=== PATIENT | male | born 1940 | race Caucasian/White ===

== ENCOUNTER → 2024-02-29 | Outpatient (CLI) | payer MEDICARE, SELFPAY ==
[2024-02-29 12:37] LABS: Absolute Lymphocyte Count 1.74 X10^3/uL (0.83-4.51); Absolute Neutrophil Count 4.6 X10^3/uL (2.0-7.7); Basophil# 0.04 X10^3/uL; Basophil% 0.6 % (0-1); Eosinophil# 0.39 X10^3/uL; Eosinophils% 5.4 % (0-5); Hematocrit 45.6 % (40-54); Hemoglobin 14.5 g/dL (13.0-16.5); Lymphocyte # 1.74 X10^3/ul (0.83-4.51); Lymphocyte % 24.1 % (19-41); Mean Corp Hgb Conc 31.8 g/dL (32-36); Mean Corpuscular Hgb 30.5 pg (27.0-32.0); Mean Platelet Vol. 11.6 fl (6.2-12.0); Monocyte# 0.48 X10^3/uL; Monocyte% 6.6 % (0-10); NRBC Flagged by Analyzer 0 % (0-5); Neutrophil # 4.55 X10^3/uL (2.7-7.7); Platelet Count 208 K/mm3 (150-450); RBC Distribution Width CV 12.9 % (11.6-14.6); RBC Distribution Width SD 46.5 fl (35.1-43.9); Red Blood Count 4.75 M/mm3 (4.6-6.2); White Blood Count 7.2 K/mm3 (4.4-11.0)
[2024-02-29 12:53] LABS: AST(SGOT) 18 U/L (15-37); Alanine Aminotransfer ALT/SGPT 27 U/L (16-61); Albumin, Serum 3.6 g/dL (3.2-5.0); Alkaline Phosphatase 131 U/L (45-117); Anion Gap 6 (5-15); BUN 16 mg/dL (7-18); BUN/Creat Ratio 16.2 RATIO (10-20); Calcium,Total 9.1 mg/dL (8.5-10.1); Chloride 106 mmol/L (98-107); Cholesterol 141 mg/dL (200); Creatinine, Serum 0.99 mg/dL (0.70-1.30); EST Glomerular Filtration Rate 77 mL/min (>60); Est Glom Filt Rate - Afr Amer 93 mL/min (>60); Globulin 3.6 g/dL (2.2-4.2); Glucose 91 mg/dL (74-106); High Density Lipoprotein 49 mg/dL; Potassium 4.3 mmol/L (3.5-5.1); Protein, Total 7.2 g/dL (6.4-8.2); Sodium Level 140 mmol/L (136-145); Triglycerides 87 mg/dL; Very Low Density Lipoprotein 17 mg/dL (5-40)
== END | disposition home or self-care (01) ==
LOC: BFHLAB 10:10
PROVIDERS: PCP Family Medicine; Referring Provider Family Medicine; Visit Provider Family Medicine
DX: I10 Essential (primary) hypertension (principal); E03.9 Hypothyroidism, unspecified; E78.5 Hyperlipidemia, unspecified
CPT/HCPCS: 36415; 80053; 80061; 84443; 85025

== ENCOUNTER 2024-06-21 09:47 | Emergency (ER) | payer MEDICARE, SELFPAY ==
[2024-06-21 09:48] VITALS: BP 165/94; PULSE 75; RESP 18; TEMP 36.7; O2SAT 95; BMI 29.3
--- NOTE | 2024-06-21 10:17 | RAD_ITS ---
PROCEDURE: CHEST 1 VIEW (PORTABLE) REASON FOR EXAM: Dizziness TECHNIQUE: Frontal and lateral views of the chest. COMPARISON: None. FINDINGS: The heart size is normal. There are atherosclerotic calcifications of the thoracic aorta. The lungs are clear. The bones are unremarkable. RAD/Chest 1 View (Portable) IMPRESSION: No radiographic evidence of acute cardiopulmonary disease Reading Location: [facility]
--- NOTE | 2024-06-21 10:17 | EKG12_ITS ---
Test Reason : WEAKNESS Blood Pressure : */* mmHG Vent. Rate : 70 BPM Atrial Rate : 70 BPM P-R Int : 192 ms QRS Dur : 96 ms QT Int : 406 ms P-R-T Axes : 37 -35 27 degrees QTcB Int : 438 ms Sinus rhythm with Premature atrial complexes Left axis deviation Minimal voltage criteria for LVH, may be normal variant ( R in aVL ) Abnormal ECG Confirmed by Brandon Hernandez ([id number]), staff editor JULIAN KAUFFMAN ([id number]) on 06/23/2024 7:02:02 AM Referred By: Confirmed By: Brandon Hernandez
--- NOTE | 2024-06-21 10:21 | EDS_ITS ---
HPI History of Present Illness Chief Complaint: Weakness Informant: patient and family Narrative Narrative: Patient is an 84-year-old male presenting from home for dizziness, nausea and vomiting. He states he woke up around 7 AM and noticed he was little dizzy. He got himself dressed and shaved and his dizziness worsens. He describes as a room spinning sensation. The dizziness got so bad that he started throwing up it was not able to get to the bathroom or walk. EMS was called he was brought to the ER for further evaluation. He states he felt well when he went to bed last night. His daughters at the bedside. Patient was able to call for help/assistance on his phone. He states that he did get up to use the restroom a couple times throughout the night which is typical for him with no symptoms. Denies any acute hearing changes. Denies any headache. I denies any acute vision changes but notes he has diminished vision at baseline because of his history of macular degeneration. Denies any hearing changes. Denies any ringing in his ears. Denies any recent URI symptoms states he has some chronic sinus congestion which is unchanged. No numbness or tingling reported. No other complaints or concerns at this time. Not on any blood thinners. [facility] Medical History Hypothyroidism GERD (gastroesophageal reflux disease) Coronary artery disease Hypertension Home Medications ?Medication ?Instructions ?Recorded ?Last Taken ?Type cetirizine 10 mg capsule (Zyrtec) 10 mg PO DAILY #14 C APSULES 06/21/24 Unknown Rx fluticasone propionate 50 1 spray intranasal Q12H #16 grams 06/21/24 Unknown Rx mcg/actuation nasal spray,suspension (Flonase Allergy Relief) meclizine 25 mg tablet 25 mg PO 4X/DAY PRN PRN Dizz iness 06/21/24 Unknown Rx #20 tabs Allergy/AdvReac Type Severity Reaction Status Date / Time No Known Allergies Allergy Verified 06/21/24 09:52 Social History Smoking Status: Never smoker ROS ROS ED Constitutional Constitutional ED: Denies chills or fever(s) Eyes Eyes: Reports other Details: Poor vision at baseline secondary to macular degeneration ; Denies blurry vision or change in vision ENT ENT ED: Denies ear pain, rhinorrhea or sore throat Cardiovascular Cardiovascular: Denies chest pain Respiratory/Chest Respiratory/Chest: Denies cough or dyspnea Gastrointestinal Gastrointestinal: Reports nausea and vomiting; Denies abdominal pain, constipation or diarrhea Genitourinary Genitourinary ED: Denies dysuria or hematuria Musculoskeletal Musculoskeletal: Denies myalgias Integumentary Denies rash Neurologic Neurologic: Reports other Details: Vertigo reported ; Denies headache(s), paresthesias or weakness Hematologic/Lymphatic Hematologic/Lymphatic: Denies easy bleeding or easy bruising EXAM Physical Exam Const Vital Signs: 06/21/24 09:48 06/21/24 09:54 06/21/24 11:56 Temperature 98.1 F Temperature Source Oral Pulse Rate 75 70 Respiratory Rate 18 18 Respiratory Pattern Normal Blood Pressure 165/94 H 150/84 H Blood Pressure Mean 117 106 Pulse Ox 95 95 Oxygen Delivery Method Room Air Room Air 06/21/24 13:08 06/21/24 14:09 Temperature 98.5 F Temperature Source Pulse Rate 78 65 Respiratory Rate 16 16 Respiratory Pattern Blood Pressure 149/71 H 135/78 H Blood Pressure Mean 97 97 Pulse Ox 96 96 Oxygen Delivery Method Room Air Positive well nourished and well developed General Appearance ED: well developed and NAD HEENT Reports moist mucous membranes HEENT Narrative: Normal external ears. Cerumen impaction noted of the right ear. Normal left ear canal with normal left tympanic membrane. Eyes PERRL and EOMs intact bilaterally Eyes Narrative: Patient has subtle fast phase nystagmus of the bilateral eyes with leftward gaze. No nystagmus appreciated with upward or downward gaze. Neck supple and no JVD Chest Wall inspection of chest normal and palpation of chest normal Resp normal respiratory effort and clear to auscultation bilaterally Cardio regular rate and regular rhythm GI normal to inspection, nondistended, normoactive bowel sounds and non-tender Palpation: soft; Negative for tender or guarding Extremity normal to inspection General Extremety ED: Negative for edema or tenderness General Extremity: Negative for edema Neuro oriented x3, CN's II-XII intact bilaterally and no sensory deficits noted Neuro Narrative: No truncal ataxia. Able to sit up in the bed easily. Normal [id number] bilaterally. Normal and symmetric fast finger to thumb. Sensorium / Orientation: alert Motor Exam: strength 5/5 throughout; Negative for general weakness Psych mental status grossly normal Skin no rashes or lesions noted and no wounds MDM MDM MDM Narrative Medical decision making narrative: Patient evaluated for sudden onset of vertigo with associated vomiting that started this morning. He was to be worse with movement. Vital signs significant for mild hypertension which patient does have a history of. Does not have any other neurologic symptoms. Does not report any vision changes but visual exam limited secondary to patient's macular degeneration and in addition patient is not have his glasses with him. Differential includes peripheral vertigo, central vertigo, hypovolemia, arrhythmia, electrolyte abnormality and intracranial hemorrhage. Will obtain CT of the brain and basic labs as well as EKG. He does have a cerumen impaction and will attempt to irrigate this out clear it to see if it helps with symptoms. Patient is given 25 mg oral meclizine in the ER. Patient symptomatically improved in the emergency room. Workup largely negative. Irrigation performed to the right ear with removal of cerumen impaction. Underlying tympanic membrane is normal-appearing with a normal ear canal. CT of the brain does show findings consistent mild chronic sinusitis and likely age-related changes. Patient ambulated after meclizine with improvement of symptoms. Patient states he feels a little weak/unsteady but he feels that he is at his baseline. Nursing states that he seemed very steady when walking but was a little off with sitting. Patient states that this is normal for him. He would like to go home. Will be discharged with a prescription for meclizine and referral to ENT. For the chronic sinusitis will be started on Flonase and daily Zyrtec. Given return precautions. Discharged home in stable condition. Did discuss that I cannot definitively rule out stroke without MRI but this time based on his physical exam, symptoms and HPI suspect this is more peripheral. He is comfortable with this. Lab Data Labs: Laboratory Results - last 24 hr 06/21/24 09:50 WBC 6.7 RBC 4.98 Hgb 15.2 Hct 46.1 MCV 92.6 MCH 30.5 MCHC 33.0 RDW Std Deviation 44.1 H RDW Coeff of Stephenie 13.0 Plt Count 190 MPV 11.3 Immature Gran % (Auto) 0.300 Neut % (Auto) 76.8 H Lymph % (Auto) 15.0 L Phillips % (Auto) 5.4 Eos % (Auto) 2.0 Baso % (Auto) 0.5 Absolute Neuts (auto) 5.1 Absolute Lymphs (auto) 1.00 Nucleated RBC % 0 Sodium 142 Potassium 4.5 Chloride Direct 106 Carbon Dioxide 25.6 Anion Gap 10 BUN 20 H Creatinine 0.98 Estim Creat Clear Calc 56.40 Est GFR (MDRD) Non-Af 75 BUN/Creatinine Ratio 19.9 Glucose 126 H Calcium 8.9 Total Bilirubin 0.77 AST 21 ALT 18 Alkaline Phosphatase 133 H Total Protein 7.2 Albumin 4.0 Globulin 3.2 Albumin/Globulin Ratio 1.3 Lipase 9 L Radiography Diagnostic Testing: Clinical Impression(s) from Imaging Studies Chest X-Ray 06/21/24 10:17 IMPRESSION: No radiographic evidence of acute cardiopulmonary disease Reading Location: [facility] Brain CT 06/21/24 10:37 IMPRESSION: 1. No acute intracranial abnormality. 2. Age-appropriate volume loss and remote small vessel ischemic changes 3. Diffuse calcifications throughout the arteries of the head. 4. Mild chronic sinusitis Reading Location: [facility] Rhythm Strip Rhythm Strip: Sinus Rhythm Rate: 70 Ectopy: PAC(s) EKG Initial EKG: Attestation: I personally reviewed and interpreted this EKG as follows: Interpretation: Sinus Rhythm Comments: Normal sinus rhythm at a rate of 70 bpm with PAC Left axis deviation Normal intervals Minimal voltage criteria for LVH Normal ST segments Prior EKG tracings: not available for review Prior: No Prior Discharge Plan Triage Chief Complaint: Weakness ED Provider: Reema Jeter Dx/Rx/DC Orders Clinical Impression: Peripheral positional vertigo, Impacted cerumen, right ear Instructions: ED BPV Vertigo Prescriptions: New meclizine 25 mg tablet 25 mg PO 4X/DAY PRN PRN (Reason: Dizziness) Qty: 20 0RF Zyrtec 10 mg capsule 10 mg PO DAILY Qty: 14 0RF fluticasone propionate [Flonase Allergy Relief] 50 mcg/actuation spray,suspension 1 spray intranasal Q12H Qty: 16 0RF Rx Instructions: administer into each nostril Primary Care Provider: Tye Berumen Referrals: Heraclio Martinez MD [Med Staff - Active Staff] - Tye Berumen DO [Primary Care Provider] - Activity Restrictions/Additional Instructions: If your symptoms worsen or uncontrollable with the medication prescribed today (meclizine) please return to the emergency room. Please follow-up with ENT as we discussed. Print Language: Bulgarian Disposition Disposition: Home, Self Care Discharge Date/Time: 06/21/24 14:09
[2024-06-21 10:27] LABS: Absolute Neutrophil Count 5.1 X10^3/uL (2.0-7.7); Basophil# 0.03 X10^3/uL; Basophil% 0.5 % (0-1); Eosinophil# 0.13 X10^3/uL; Hematocrit 46.1 % (40-54); Hemoglobin 15.2 g/dL (13.0-16.5); Mean Corpuscular Hgb 30.5 pg (27.0-32.0); Mean Corpuscular Volume 92.6 fL (80-94); Mean Platelet Vol. 11.3 fl (6.2-12.0); Monocyte# 0.36 X10^3/uL; Monocyte% 5.4 % (0-10); NRBC Flagged by Analyzer 0 % (0-5); Neutrophil # 5.11 X10^3/uL (2.7-7.7); Neutrophil % 76.8 % (47-70); Platelet Count 190 K/mm3 (150-450); RBC Distribution Width SD 44.1 fl (35.1-43.9); Red Blood Count 4.98 M/mm3 (4.6-6.2); White Blood Count 6.7 K/mm3 (4.4-11.0)
[2024-06-21] MEDS: Meclizine HCl 25 MG Tablet PO (10:30)
--- NOTE | 2024-06-21 10:37 | CT_ITS ---
EXAM: BRAIN/HEAD WITHOUT CONTRAST CLINICAL HISTORY: Dizzy COMPARISON: None. TECHNIQUE: Noncontrast images of the head with multiplanar reconstructions. Dose reduction techniques were used including intermediate exposure control (AEC),iterative reconstruction technique, and/or mA and/or KV dose adjustments based on patient's size. FINDINGS: CT HEAD FINDINGS: No acute intracranial hemorrhage, mass, mass effect, midline shift or pathologic extra-axial fluid collection. Nonspecific periventricular white matter changes are noted. No hydrocephalus. Age- appropriate cerebral volume and white matter. Mild thickening in the ethmoid and bilateral maxillary sinuses. Mastoid air cells are clear. The calvarium is grossly intact. Diffuse calcification in the arteries of the head. CT/Brain/Head without Contrast IMPRESSION: 1. No acute intracranial abnormality. 2. Age-appropriate volume loss and remote small vessel ischemic changes 3. Diffuse calcifications throughout the arteries of the head. 4. Mild chronic sinusitis Reading Location: [facility]
[2024-06-21 11:06] LABS: ALB/GLOB Ratio 1.3 RATIO (0.9-2.4); AST(SGOT) 21 U/L (<=37); Alanine Aminotransfer ALT/SGPT 18 U/L (<=46); Alkaline Phosphatase 133 U/L (40-129); Anion Gap 10 (5-15); BUN 20 mg/dL (4-19); BUN/Creat Ratio 19.9 RATIO (10-20); Calcium 8.9 mg/dL (7.6-11.0); Carbon Dioxide 25.6 mmol/L (22.0-29.0); Chloride 106 mmol/L (96-108); Creatinine, Serum 0.98 mg/dL (0.70-1.20); EST Glomerular Filtration Rate 75 (>60); Globulin 3.2 g/dL (2.2-4.2); Glucose 126 mg/dL (70-99); Lipase 9 U/L (13-75); Potassium 4.5 mmol/L (3.3-5.1); Protein, Total 7.2 g/dL (5.9-8.4); Sodium Level 142 mmol/L (133-145); Total Bilirubin 0.77 mg/dL (0.00-1.30)
[2024-06-21 11:56] VITALS: BP 150/84; PULSE 70; RESP 18; O2SAT 95
[2024-06-21 13:08] VITALS: BP 149/71; PULSE 78; RESP 16; O2SAT 96
[2024-06-21 14:09] VITALS: BP 135/78; PULSE 65; RESP 16; TEMP 36.9; O2SAT 96
== END 2024-06-21 14:09 | disposition home or self-care (01) ==
PROVIDERS: Emergency Provider Emergency Medicine; PCP Family Medicine; Visit Provider Emergency Medicine
DX: R53.1 Weakness (principal); H61.21 Impacted cerumen, right ear; I10 Essential (primary) hypertension; I25.10 Atherosclerotic heart disease of native coronary artery without angina pectoris; R42 Dizziness and giddiness
CPT/HCPCS: 69209; 70450; 71045; 80053; 83690; 85025; 93005; 99285; A4216